=== PATIENT | male | born 1975 | race Caucasian/White ===

== ENCOUNTER 2019-05-20 00:30 | Day surgery (SDC) | payer OTHER, SELFPAY ==
[2019-05-16 11:47] VITALS: BMI 30.4
[2019-05-20 07:35] VITALS: BP 131/100; PULSE 109; RESP 20; TEMP 36.4
[2019-05-20] MEDS: LACTATED RINGERS 1,000 ML 150 ML IV CONT (07:49)
--- NOTE | 2019-05-20 07:52 | WPDANESEPPF ---
Anes - Initial Pre Proc Eval Procedure: Operation Date: 05/20/19 08:30 Proposed Procedures p Colonoscopy - Billy Vidal MD Date/Time: 05/20/19 07:52 Surgeon: Billy Vidal MD Pre Op Diagnosis: Melena Patient Data Age: 43 Gender: M Height: 5 ft 9 in Weight: 93.4 kg Last Vital Signs Temp 36.4 C 05/20/19 07:35 Pulse 109 H 05/20/19 07:35 Resp 20 05/20/19 07:35 BP 131/100 H 05/20/19 07:35 Allergies Allergy/AdvReac Type Severity Reaction Status Date / Time No Known Allergies Allergy Verified 05/20/19 07:34 Home Medications Medication Instructions Recorded Confirmed Type esomeprazole magnesium 40 mg 40 mg PO DAILY #90 cap 02/22/19 05/16/19 Rx capsule,delayed release aspirin 81 mg tablet,delayed 81 mg PO DAILY 04/20/19 05/16/19 History release atorvastatin 80 mg tablet 80 mg PO DAILY 04/20/19 05/16/19 History cyclobenzaprine 10 mg tablet 10 mg PO BID tablet 04/20/19 05/16/19 History hydrocodone 5 mg-acetaminophen 325 1 tablet PO Q6H PRN 04/20/19 05/16/19 History mg tablet Patient hx anesthesia problems: none Family hx anesthesia problems: none PMFSH Past Medical History Medical History Anemia Biliary colic Elevated BP without diagnosis of hypertension Hypercholesterolemia Mild acid reflux Thrush Surgical History Surgical History H/O hand surgery BL 1996 Status post tendon reattachment Right arm 05/2018 Family History Family History Father Family history of gout Mother Cerebrovascular accident Social History Social History Smoking status: Former smoker Smoking end date: 02/16/15 Alcohol intake: current Anes - Eval Final PreProcedure Day of Procedure 05/20/19 07:52 Patient weight: obese Heart: regular rate and rhythm Lungs: clear to auscultation Neurological: alert and oriented Last oral intake: >/= 8 hours ASA classification: III Emergent: no Anesthetic plan: proceed Anesthesia type and monitoring: general GIVS and standard monitoring Informed Consent: The patient's anesthetic plan and its attendant risks and benefits were discussed with the patient/family/POA. Questions were solicited and answers provided to the satisfaction of the patient/family/POA.
--- NOTE | 2019-05-20 07:54 | P.HP_ITS ---
History of Present Illness History of Present Illness Consent: Risks, benefits, and alternatives have been discussed and questions answered. Patient agrees to proceed with procedure. Chief complaint: Melena Narrative: Wilver Soler is a 43 year old W male referred for semi urgent colonoscopy secondary to rectal bleeding. Patient also has had some associated anorectal pain. This usually happens after he rides his motorcycle. No change in bowel habits. No family history of colitis, colon polyps, or colon cancer. Patient has never had a colonoscopy in the past. [facility]LY [facility] Past Medical History Medical History Anemia Biliary colic Elevated BP without diagnosis of hypertension Hypercholesterolemia Mild acid reflux Thrush Surgical History Surgical History H/O hand surgery BL 1995 Status post tendon reattachment Right arm 05/2018 Family History Family History Father Family history of gout Mother Cerebrovascular accident Social History Social History Smoking status: Former smoker Smoking end date: 02/16/15 Alcohol intake: current Meds Home Medications and Allergies Home Medications Medication Instructions Recorded Confirmed Type esomeprazole magnesium 40 mg 40 mg PO DAILY #90 cap 02/22/19 05/16/19 Rx capsule,delayed release aspirin 81 mg tablet,delayed 81 mg PO DAILY 04/20/19 05/16/19 History release atorvastatin 80 mg tablet 80 mg PO DAILY 04/20/19 05/16/19 History cyclobenzaprine 10 mg tablet 10 mg PO BID tablet 04/20/19 05/16/19 History hydrocodone 5 mg-acetaminophen 325 1 tablet PO Q6H PRN 04/20/19 05/16/19 History mg tablet Allergies Allergy/AdvReac Type Severity Reaction Status Date / Time No Known Allergies Allergy Verified 05/20/19 07:34 Vital Signs Vital Signs - 24 hr 05/20/19 07:35 Temperature 36.4 C Pulse Rate 109 H Respiratory Rate 20 Blood Pressure 131/100 H Exam Const: Orientation/consciousness: patient oriented x3 Resp: Auscultation: clear to auscultation bilaterally Cardio: Rate: regular rate Rhythm: regular rhythm Heart sounds: no murmurs GI: GI Palp: Yes Soft to palpation, No Tenderness to palpation present (GI), Yes No hepatosplenomegaly present and No Palpable mass present Auscultation: normal bowel sounds Neuro: General: patient oriented x3 and no focal motor deficits Extrem: General: no pedal edema Assessment and Plan Additional Plan Colonoscopy for evaluation of rectal bleeding.
[2019-05-20] MEDS: SIMETHICONE ORAL SUSPENSION 20 MG/0.3 ML 30 ML BOTTLE 0.6 ML IRRIGATION (08:28)
[2019-05-20 08:43] VITALS: BP 125/90; PULSE 89; RESP 15; O2SAT 99
[2019-05-20 08:53] VITALS: BP 136/91; PULSE 82; RESP 14; O2SAT 100
[2019-05-20 09:03] VITALS: BP 126/82; PULSE 75; RESP 16; O2SAT 98
== END 2019-05-20 09:18 | disposition home or self-care (01) ==
PROVIDERS: PCP Internal Medicine; Visit Provider Internal Medicine Gastroenterology
PROC: 0DJD8ZZ Inspection of Lower Intestinal Tract, Via Natural or Artificial Opening Endoscopic (ICD-10-PCS; CPT 45378; principal; 2019-05-20 08:30)
DX: K62.5 Hemorrhage of anus and rectum (principal); K62.1 Rectal polyp; K64.8 Other hemorrhoids; K64.4 Residual hemorrhoidal skin tags; E78.5 Hyperlipidemia, unspecified; R03.0 Elevated blood-pressure reading, without diagnosis of hypertension; D64.9 Anemia, unspecified; K21.9 Gastro-esophageal reflux disease without esophagitis; K83.9 Disease of biliary tract, unspecified; Z79.82 Long term (current) use of aspirin; Z87.891 Personal history of nicotine dependence; E66.9 Obesity, unspecified; Z68.30 Body mass index [BMI] 30.0-30.9, adult
CPT/HCPCS: 45385; 45380; 88305; J2704; J7120

== ENCOUNTER 2021-07-18 07:33 | Outpatient (CLI) | payer OTHER, SELFPAY ==
--- NOTE | 2021-07-30 12:18 | WPDHOMESLEEP ---
Sleep Study - Home Unattended Date of Study: 07/18/21 Ordering Provider: BRIANNA Huizar-Errol Interpreting Provider: Akiko Siddiqui, DO Home Sleep Study Type: Watch PAT Height: 1.75 m Weight: 97.069 kg Body Mass Index: 31.6 Neck Circumference (inches): 18 [place]: 9 Reason for Sleep Study Unrefreshing sleep and apneic episodes Sleep History The patient is a 45-year-old male with GERD, erectile dysfunction and hyperlipidemia that had a sleep study ordered by his primary care for evaluation of sleep apnea. 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 He frequently awakens from sleep short of breath. He occasionally awakens at night with heartburn, belching or cough. He constantly snores loud enough that others complain. He frequently has trouble sleeping when he has a cold. He frequently wakes up gasping for air throughout the night. He frequently has breathing problems at night observed by himself or others. He frequently sweats excessively at night. He frequently has heart palpitations or irregular heartbeats during the night. He frequently falls asleep during the day but never while driving. He denies sleep paralysis and cataplexy. He rarely has trouble at school or work due to sleepiness. He frequently experiences vivid dreamlike scenes upon awakening or falling asleep. He frequently has nightmares and frequently remembers his dreams. He frequently has thoughts racing through his mind. He occasionally feels sad or depressed. He occasionally has anxiety. He denies having muscular tension. He denies noticing parts of his body jerk. He denies kicking during the night. He denies having crawling and aching feelings in his legs. He rarely has leg pain during the night. He denies grinding his teeth during sleep and awakening with morning jaw pain. He rarely is bothered by pain during the day and never awakened by pain during the night. He occasionally wakes up feeling stiff in the morning. He occasionally wakes up with sore or achy muscles. He occasionally wakes up with pain in the neck, spine and other joints. He goes to bed at 11:30 p.m. on weekdays and at midnight on the weekends. It takes him 5 minutes to fall asleep. He wakes up anywhere from 2-10 times per night for unknown reasons. He will readjust and try to fall back asleep which can take any where from 2 minutes to an hour. He wakes up at 5:45 a.m. on weekdays and between 7-8 a.m. on the weekends. He typically gets 5-6 hours of sleep per night. He will stay in bed for 5 minutes after waking up in the morning. He currently lives with his . He will consume coffee or tea within 2 hours of bedtime. He does not engage in physical exercise before bedtime. He will read and watch television before falling asleep. He does not take naps in the afternoon or the evening. He will drink caffeinated beverages throughout the day. He will drink alcohol once per week. He denies tobacco and recreational drug use. FORMERLY [facility], [facility] Past Medical History Medical History Abnormal colonoscopy Anemia Biliary colic COVID-19 Elevated BP without diagnosis of hypertension Hypercholesterolemia Mild acid reflux Thrush Surgical History Surgical History H/O hand surgery BL 1995 Status post tendon reattachment Right arm 05/2018 Family History Family History Father Family history of gout Mother Cerebrovascular accident Social History Social History Smoking status: Never smoker Smoking end date: 02/16/15 Alcohol intake: current Medications Home Medications Medication Instructions Recorded Confirmed Type aspirin 81 mg tablet,delayed 81 mg PO DAILY 04/20/19 05/27/21 History release (Adult Low Dose Aspirin) cyclobenzaprine 10 mg tablet 10 mg PO
[2021-07-30 12:26] VITALS: BMI 31.6
== END 2021-07-22 11:09 | disposition home or self-care (01) ==
LOC: ANHCSM 07:35
PROVIDERS: PCP Internal Medicine; Visit Provider Clinical Nurse Specialist
DX: G47.33 Obstructive sleep apnea (adult) (pediatric) (principal)
CPT/HCPCS: 95800

== ENCOUNTER 2021-08-15 07:25 | Outpatient (CLI) | payer OTHER, SELFPAY ==
--- NOTE | 2021-09-10 14:10 | WPDSLEEPSTUD ---
Sleep Study Date of Study: 08/15/21 Ordering Provider: KASSIDY Huizar Interpreting Physician: Akiko Siddiqui, DO Sleep Study Type: BiPAP Titration Height: 1.75 m Weight: 95.254 kg Body Mass Index: 31.0 Neck Circumference (inches): 19 [place]: 10 Reason for Sleep Study The patient had a home sleep test on 07/18/2021 that showed an overall AHI of 33.8 with desaturation down to 81%. He had a central apnea index of 4.8.? Sleep History The patient is a 45-year-old male with GERD, erectile dysfunction and hyperlipidemia that had a sleep study ordered by his primary care for evaluation of sleep apnea.? 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 He frequently awakens from sleep short of breath.? He occasionally awakens at night with heartburn, belching or cough.? He constantly snores loud enough that others complain.? He frequently has trouble sleeping when he has a cold.? He frequently wakes up gasping for air throughout the night.? He frequently has breathing problems at night observed by himself or others.? He frequently sweats excessively at night.? He frequently has heart palpitations or irregular heartbeats during the night.? He frequently falls asleep during the day but never while driving.? He denies sleep paralysis and cataplexy.? He rarely has trouble at school or work due to sleepiness.? He frequently experiences vivid dreamlike scenes upon awakening or falling asleep.? He frequently has nightmares and frequently remembers his dreams.? He frequently has thoughts racing through his mind.? He occasionally feels sad or depressed.? He occasionally has anxiety.? He denies having muscular tension.? He denies noticing parts of his body jerk.? He denies kicking during the night.? He denies having crawling and aching feelings in his legs.? He rarely has leg pain during the night.? He denies grinding his teeth during sleep and awakening with morning jaw pain.? He rarely is bothered by pain during the day and never awakened by pain during the night.? He occasionally wakes up feeling stiff in the morning.? He occasionally wakes up with sore or achy muscles.? He occasionally wakes up with pain in the neck, spine and other joints.? He goes to bed at 11:30 p.m. on weekdays and at midnight on the weekends.? It takes him 5 minutes to fall asleep.? He wakes up anywhere from 2-10 times per night for unknown reasons.? He will readjust and try to fall back asleep which can take any where from 2 minutes to an hour.? He wakes up at 5:45 a.m. on weekdays and between 7-8 a.m. on the weekends.? He typically gets 5-6 hours of sleep per night.? He will stay in bed for 5 minutes after waking up in the morning.? He currently lives with his .? He will consume coffee or tea within 2 hours of bedtime.? He does not engage in physical exercise before bedtime.? He will read and watch television before falling asleep.? He does not take naps in the afternoon or the evening.? He will drink caffeinated beverages throughout the day.? He will drink alcohol once per week.? He denies tobacco and recreational drug use. [facility] Past Medical History Medical History Abnormal colonoscopy Anemia Biliary colic Cerebral infarct COVID-19 Elevated BP without diagnosis of hypertension Hypercholesterolemia Mild acid reflux Thrush Surgical History Surgical History H/O hand surgery BL 1995 Status post tendon reattachment Right arm 05/2018 Family History Family History Father Family history of gout Mother Cerebrovascular accident Social History Social History Smoking status: Never smoker Smoking end date: 02/16/15 Alcohol intake: current Medications Home Medications Medication Instructions Recorded Confirmed Type aspirin 81 mg tablet,delayed 81 m
[2021-09-10 21:00] VITALS: BMI 31.0
--- NOTE | 2021-10-15 10:42 | SLEEP ---
PT STATED HE HAS NOT HEARD FROM [facility]. I CALLED [facility] TO CHECK THE STATUS. WILL CALL AND INFORM PT OF STATUS
--- NOTE | 2022-01-13 12:45 | SLEEP ---
pt is struggling with compliance. pt instructed to follow up with dr mcgee or dr yañez for pressure setting help
== END 2021-08-16 06:49 | disposition home or self-care (01) ==
LOC: ANHCSM 07:26
PROVIDERS: PCP Internal Medicine; Visit Provider Clinical Nurse Specialist
DX: G47.33 Obstructive sleep apnea (adult) (pediatric) (principal); G47.31 Primary central sleep apnea
CPT/HCPCS: 95811

== ENCOUNTER 2021-09-26 07:16 | Outpatient (RCR) | payer OTHER, SELFPAY ==
[2021-09-18 09:00] VITALS: BMI 30.9
== END 2021-12-02 12:47 | disposition home or self-care (01) ==
LOC: ANHWOC 07:16
PROVIDERS: PCP Internal Medicine; Visit Provider Clinical Nurse Specialist
DX: S61.409A Unspecified open wound of unspecified hand, initial encounter (principal); T14.8XXA Other injury of unspecified body region, initial encounter
CPT/HCPCS: 99212; 99214; A9270; G0463

== ENCOUNTER 2022-04-28 10:57 | Outpatient (CLI) | payer OTHER, SELFPAY | END 2022-04-28 10:58 | disposition home or self-care (01) | LOC: ANHAUDIO 10:57 | PROVIDERS: PCP Internal Medicine; Visit Provider Clinical Nurse Specialist | DX: H91.90 Unspecified hearing loss, unspecified ear (principal) | CPT/HCPCS: 92557; 92567 ==

== ENCOUNTER 2023-01-23 01:02 | Day surgery (SDC) | payer OTHER, SELFPAY ==
[2023-01-12 10:38] VITALS: BMI 31.1
--- NOTE | 2023-01-21 09:52 | SUR.PREOP ---
Patient called regarding upcoming procedure. Reviewed preop instructions, appointment times, and procedure prep.
--- NOTE | 2023-01-22 17:51 | PM.HPGS ---
History of Present Illness History of Present Illness Consent: Risks, benefits, and alternatives have been discussed and questions answered. Patient agrees to proceed with procedure. Chief complaint: history of colon polyps Narrative: Wilver Soler is a 47 year old male Referred for colon cancer screening. A little over 3 years ago he had removal of multiple polyps. Most of them were hyperplastic but 1 was a serrated polyp. He also been found have hemorrhoids at that time Review of Systems Review of Systems: All systems reviewed & are unremarkable except as noted in HPI and below PMFSH Past Medical History Medical History Abnormal colonoscopy Anemia Biliary colic Cerebral infarct COVID-19 Elevated BP without diagnosis of hypertension Hospital discharge follow-up Hypercholesterolemia Mild acid reflux Thrush Surgical History Surgical History H/O hand surgery BL 1995 Status post tendon reattachment Right arm 05/2018 Family History Family History Father Family history of gout Mother Cerebrovascular accident Social History Social History Smoking status: Never smoker Smoking end date: 02/16/15 Alcohol intake: current Alcohol use details: Rarely Substance use type: does not use Lack of Transportation: No Lack of Food: Never True Current Housing: I Have Housing Concerned About Future Housing: No Difficulty Paying Gas/Electric Bills: No Difficulty Paying for Meds: No Currently Unemployed: No Education: Trade/Vocational Certificate Difficulty w/ Childcare or Family Care: No Meds Home Medications and Allergies Home Medications Medication Instructions Recorded Confirmed Type aspirin 81 mg tablet,delayed 81 mg PO DAILY 04/20/19 01/12/23 History release (Adult Low Dose Aspirin) triamcinolone acetonide 0.1 % 1 applic topical BID PRN Psoriasis 01/10/20 01/12/23 Rx topical cream #30 grams cyclobenzaprine 10 mg tablet 10 mg PO .prn #30 tabs 04/11/22 01/12/23 Rx hydrocodone 5 mg-acetaminophen 325 1 tablet PO Q6H PRN Pain #30 tabs 04/11/22 01/12/23 Rx mg tablet tadalafil 20 mg tablet (Cialis) 20 mg PO DAILY PRN sexual activity 04/11/22 01/12/23 Rx #30 tabs atorvastatin 80 mg tablet 80 mg PO DAILY #90 tabs 10/23/22 01/12/23 Rx esomeprazole magnesium 40 mg See Rx Instructions .Route 01/20/23 Rx capsule,delayed release .COMPLEX #30 caps Allergies Allergy/AdvReac Type Severity Reaction Status Date / Time No Known Allergies Allergy Verified 01/12/23 10:36 Exam Const: General: alert Orientation/consciousness: patient oriented x3 Resp: Auscultation: clear to auscultation bilaterally Cardio: Rhythm: regular rhythm GI: GI Palp: Yes Soft to palpation and No Tenderness to palpation present (GI) Neuro: General: patient oriented x3 Assessment and Plan Assessment and plan (1) History of colonic polyps: Code(s): Z86.010 - Personal history of colonic polyps Status: Acute Assessment and Plan: Colonoscopy with possible biopsy or polypectomy or cautery or injection of substances.
[2023-01-23 10:04] VITALS: BP 147/90; PULSE 91; RESP 16; TEMP 36.2; O2SAT 99
[2023-01-23] MEDS: LACTATED RINGERS 1,000 ML 150 ML IV CONT (10:14)
--- NOTE | 2023-01-23 10:28 | WPDANESEPPF ---
Anes - Initial Pre Proc Eval Procedure: Operation Date: 01/23/23 11:00 Proposed Procedures p Colonoscopy - Wilver Wu MD Date/Time: 01/23/23 10:28 Surgeon: Wilver Wu MD Pre Op Diagnosis: history of colon polyps Patient Data Age: 47 Gender: M Height: 1.75 m Weight: 96.6 kg Last Vital Signs Temp 97.2 F L 01/23/23 10:04 Pulse 91 01/23/23 10:04 Resp 16 01/23/23 10:04 BP 147/90 H 01/23/23 10:04 Pulse Ox 99 01/23/23 10:04 O2 Del Method Room Air 01/23/23 10:04 Allergies Allergy/AdvReac Type Severity Reaction Status Date / Time No Known Allergies Allergy Verified 01/23/23 09:56 Home Medications Medication Instructions Recorded Confirmed Type aspirin 81 mg tablet,delayed 81 mg PO DAILY 04/20/19 01/23/23 History release (Adult Low Dose Aspirin) triamcinolone acetonide 0.1 % 1 applic topical BID PRN Psoriasis 01/10/20 01/23/23 Rx topical cream #30 grams cyclobenzaprine 10 mg tablet 10 mg PO .prn #30 tabs 04/11/22 01/23/23 Rx hydrocodone 5 mg-acetaminophen 325 1 tablet PO Q6H PRN Pain #30 tabs 04/11/22 01/23/23 Rx mg tablet tadalafil 20 mg tablet (Cialis) 20 mg PO DAILY PRN sexual activity 04/11/22 01/23/23 Rx #30 tabs atorvastatin 80 mg tablet 80 mg PO DAILY #90 tabs 10/23/22 01/23/23 Rx esomeprazole magnesium 40 mg See Rx Instructions .Route 01/20/23 01/23/23 Rx capsule,delayed release .COMPLEX #30 caps Patient hx anesthesia problems: none Family hx anesthesia problems: none Results Review: All pre-operative results and documents have been reviewed as part of the pre-operative evaluation. [facility] Past Medical History Medical History Abnormal colonoscopy Anemia Biliary colic Cerebral infarct COVID-19 Elevated BP without diagnosis of hypertension Hospital discharge follow-up Hypercholesterolemia Mild acid reflux Thrush Surgical History Surgical History H/O hand surgery BL 1996 Status post tendon reattachment Right arm 05/2018 Family History Family History Father Family history of gout Mother Cerebrovascular accident Social History Social History Smoking status: Never smoker Smoking end date: 02/16/15 Alcohol intake: current Alcohol use details: Rarely Substance use type: does not use Lack of Transportation: No Lack of Food: Never True Current Housing: I Have Housing Concerned About Future Housing: No Difficulty Paying Gas/Electric Bills: No Difficulty Paying for Meds: No Currently Unemployed: No Education: Trade/Vocational Certificate Difficulty w/ Childcare or Family Care: No Anes - Eval Final PreProcedure Day of Procedure 01/23/23 10:28 Patient weight: normal Heart: regular rate and rhythm Lungs: clear to auscultation Airway: Mallampati scale class II Neurological: alert and oriented Last oral intake: >/= 8 hours ASA classification: III Emergent: no Anesthetic plan: proceed Anesthesia type and monitoring: general GIVS and standard monitoring Results Review: All pre-operative results and documents have been reviewed as part of the pre-operative evaluation. Informed Consent: The patient's anesthetic plan and its attendant risks and benefits were discussed with the patient/family/POA. Questions were solicited and answers provided to the satisfaction of the patient/family/POA.
[2023-01-23] MEDS: SIMETHICONE ORAL SUSPENSION 20 MG/0.3 ML 30 ML BOTTLE 0.6 ML IRRIGATION (10:56)
[2023-01-23 10:57] VITALS: BP 133/89; PULSE 90; RESP 23; O2SAT 99
[2023-01-23 11:07] VITALS: BP 135/88; PULSE 93; RESP 20; O2SAT 100
[2023-01-23 11:17] VITALS: BP 141/96; PULSE 80; RESP 15; O2SAT 99
== END 2023-01-23 11:21 | disposition home or self-care (01) ==
PROVIDERS: PCP Internal Medicine; Visit Provider Internal Medicine Gastroenterology
PROC: 0DJD8ZZ Inspection of Lower Intestinal Tract, Via Natural or Artificial Opening Endoscopic (ICD-10-PCS; CPT 45378; principal; 2023-01-23 11:00)
DX: Z12.11 Encounter for screening for malignant neoplasm of colon (principal); K57.30 Diverticulosis of large intestine without perforation or abscess without bleeding; K63.5 Polyp of colon; K64.8 Other hemorrhoids; E78.00 Pure hypercholesterolemia, unspecified; K21.9 Gastro-esophageal reflux disease without esophagitis; Z79.82 Long term (current) use of aspirin
CPT/HCPCS: 45380; 88305; J2704; J7120